=== PATIENT | male | born 1975 | race Caucasian/White ===

== ENCOUNTER 2019-05-08 12:50 | Emergency (ER) | payer MEDICAID ==
[~2019-05-08] VITALS: Ht 190.5 cm; Wt 104.3 kg
[2019-05-08 12:52] VITALS: BP 146/124
--- NOTE | 2019-05-08 12:52 | NUR ---
ED Nurse Note: Patient presented to ED via EMS. Per EMS, patient was out doing errands and felt sudden left lateral abdominal pain that radiates to the back started about an hour prior to admit. Pain level upon assessment 03/06. Per EMS, patient was given 100mcg of Fentantyl. Patient aao x 4 and ambulatory. Patient cooperative but presents with facial grimacing and moaning due to pain. Patient placed on color television console monitor.
[2019-05-08] MEDS ORDERED: Ketorolac 30mg Inj IV ONE (13:15)
[2019-05-08] MEDS ORDERED: Omnipaque-300 100ml vial INJ PRN (13:15)
[2019-05-08] MEDS ORDERED: Morphine Sulfate 4mg/ml Inj (IV USE ONLY) IVP ONE (13:15)
--- NOTE | 2019-05-08 13:28 | NUR ---
ED Nurse Note: patient tried to pee, but unable to. patient medicated with morphine and educated that it is not safe for him to use restroom by himself, but patient insisted that he can use the restroom by himself.
--- NOTE | 2019-05-08 13:35 | NUR ---
ED Nurse Note: Patient placed back on monitor after going to restroom.
[2019-05-08 13:39] LABS: BASOPHILS % (AUTO) 0.7 % (0.0-2.0); EOSINOPHILS % (AUTO) 1.3 % (0.0-3.0); HEMATOCRIT 46.3 % (42.0-52.0); HEMOGLOBIN 16.4 G/DL (14.2-18.0); LYMPHOCYTES % (AUTO) 12.6 % (20.0-45.0); MEAN CORPUSCULAR VOLUME 87 FL (80-99); MONOCYTES % (AUTO) 7.9 % (1.0-10.0); NEUTROPHILS % (AUTO) 77.5 % (45.0-75.0); PLATELET COUNT 236 K/UL (150-450); RED CELL DISTRIBUTION WIDTH 11.8 % (11.6-14.8); WHITE BLOOD COUNT 13.5 K/UL (4.8-10.8)
[2019-05-08 13:56] LABS: ANION GAP 6 mmol/L (5-15); BLOOD UREA NITROGEN 13 mg/dL (7-18); CALCIUM 8.6 MG/DL (8.5-10.1); CARBON DIOXIDE 30 MMOL/L (21-32); CHLORIDE 103 MMOL/L (98-107); CREATININE 0.9 MG/DL (0.55-1.30); INR 0.9 (0.9-1.1); POTASSIUM 4.1 MMOL/L (3.5-5.1); SODIUM 139 MMOL/L (136-145)
--- NOTE | 2019-05-08 14:00 | NUR ---
ED Nurse Note: patient taken to CT scan
[2019-05-08 14:01] LABS: ALANINE AMINOTRANSFERASE 39 U/L (12-78); ALBUMIN 3.9 G/DL (3.4-5.0); ALBUMIN/GLOBULIN RATIO 1.1 (1.0-2.7); ALKALINE PHOSPHATASE 68 U/L (46-116); ASPARTATE AMINO TRANSFERASE 19 U/L (15-37); BILIRUBIN,TOTAL 0.6 MG/DL (0.2-1.0)
--- NOTE | 2019-05-08 14:19 | NUR ---
ED Nurse Note: Patient returned from CT scan in stable condition and placed back on cardiac exercise physiologist.
--- NOTE | 2019-05-08 15:06 | Emergency Room Report ---
History of Present Illness General Chief Complaint: Abdominal Pain Source: Patient (Brando Reeder MD) Present Illness HPI Patient is a 43-year-old male male presents after acute onset of increased left lower abdominal pain. Patient reports of increased pain to the left flank radiating to the groin area. He had multiple episodes of nausea without any vomiting. Pain was severe in nature. He denies any prior similar episodes. Denies any prior history of kidney stones.He denies any hematuria. He had not been having any fever. (Brando Reeder MD) Allergies: Coded Allergies: No Known Allergies (Unverified , 05/08/19) Patient History Past Medical History: see triage record Reviewed Nursing Documentation: PMH: Agreed; PSxH: Agreed (Brando Reeder MD) Nursing Documentation-PMH Past Medical History: No Stated History (Brando Reeder MD) Physical Exam Vital Signs Date Time Temp Pulse Resp B/P (MAP) Pulse Ox O2 Delivery O2 Flow Rate FiO2 05/08/19 12:41 98.1 61 19 137/108 (118) 98 Room Air General Appearance: alert, GCS 15, non-toxic, moderate distress Eyes: bilateral eye normal inspection ENT: hearing grossly normal Neck: full range of motion Respiratory: chest non-tender, lungs clear, normal breath sounds Cardiovascular #1: normal inspection Gastrointestinal: normal inspection, normal bowel sounds, soft Genitourinary: no CVA tenderness Musculoskeletal: normal inspection, back normal Neurologic: normal inspection, alert, oriented x3, quality assurance project manager III-XII nml as tested, motor strength/tone normal Psychiatric: normal inspection Skin: no rash (Brando Reeder MD) Medical Decision Making Diagnostic Impression: Primary Impression: Kidney stone ER Course Patient presented for abdominal pain. Differential diagnoses included ischemic bowel, appendicitis, perforated viscus, abdominal aortic aneurysm, inferior myocardial infarction, viral gastroenteritis among others.Because patient's complexity imaging studies, and laboratory testing ordered. Laboratory testing showed . Patient was noted to have significant initial abdominal pain and was given IV narcotic pain medications as well as IV fluids. Patient's history is suggestive of a possible stone and CT imaging was ordered. Patient was endorsed to pending CT results. . (Brando Reeder MD) ER Course Hospital Course 43 yo M presents to ED c/o L abd pain Patient initially seen and evaluated by Dr. Reeder; please see his note for full history and physical Clinical course Labs - noted leukocytosis, hb/hct stable, electrolytes ok, UA + Bacteria CT scan shows 2mm stone in the bladder lumen with adjacent UVJ dilated. mild hydronephrosis. Discussed findings with patient. Will discharge to home with prescriptions. Does not have a PMD. Will provide PMD and urology referrals I feel this is a highly complex case requiring extensive working including EKG/ Rhythm strip, Xray/CT/US, Blood/urine lab work, repeat exams while in ED, and administration of strong opiates/narcotics for pain control, admission to hospital or close patient follow up. Diagnosis - kidney stone Stable and discharged to home with Rx Motrin, [place], Flomax, zofran. Followup with PMD. Return to ED if symptoms recur or worsen Labs Test 05/08/19 13:15 White Blood Count 13.5 K/UL (4.8-10.8) Red Blood Count 5.30 M/UL (4.70-6.10) Hemoglobin 16.4 G/DL (14.2-18.0) Hematocrit 46.3 % (42.0-52.0) Mean Corpuscular Volume 87 FL (80-99) Mean Corpuscular Hemoglobin 31.0 PG (27.0-31.0) Mean Corpuscular Hemoglobin Concent 35.5 G/DL (32.0-36.0) Red Cell Distribution Width 11.8 % (11.6-14.8) Platelet Count 236 K/UL (150-450) Mean Platelet Volume 7.3 FL (6.5-10.1) Neutrophils (%) (Auto) 77.5 % (45.0-75.0) Lymphocytes (%) (Auto) 12.6 % (20.0-45.0) Monocytes (%) (Auto) 7.9 % (1.0-10.0) Eosinophils (%) (Auto) 1.3 % (0.0-3.0) Basophils (%) (Auto) 0.7 % (0.0-2.0) Prothrombin Time 10.0 SEC (9.30-11.50) Prothromb Time International Ratio 0.9 (0.9-1.1) Activated Partial Thromboplast Time 26 SEC (23-33) Urine Color Pale yellow Urine Appearance Clear Urine pH 7 (4.5-8.0) Urine Specific [place] 1.005 (1.005-1.035) Urine Protein Negative (NEGATIVE) Urine Glucose (UA) Negative (NEGATIVE) Urine Ketones Negative (NEGATIVE) Urine Blood 4+ (NEGATIVE) Urine Nitrite Negative (NEGATIVE) Urine Bilirubin Negative (NEGATIVE) Urine Urobilinogen Normal MG/DL (0.0-1.0) Urine Leukocyte Esterase Negative (NEGATIVE) Urine RBC 5-10 /HPF (0 - 0) Urine WBC 0-2 /HPF (0 - 0) Urine Squamous Epithelial Cells None /LPF (NONE/OCC) Urine Bacteria None /HPF (NONE) Sodium Level 139 MMOL/L (136-145) Potassium Level 4.1 MMOL/L (3.5-5.1) Chloride Level 103 MMOL/L (98-107) Carbon Dioxide Level 30 MMOL/L (21-32) Anion Gap 6 mmol/L (5-15) Blood Urea Nitrogen 13 mg/dL (7-18) Creatinine 0.9 MG/DL (0.55-1.30) Estimat Glomerular Filtration Rate > 60 mL/min (>60) Glucose Level 131 MG/DL (74-106) Calcium Level 8.6 MG/DL (8.5-10.1) Total Bilirubin 0.6 MG/DL (0.2-1.0) Aspartate Amino Transf (AST/SGOT) 19 U/L (15-37) Alanine Aminotransferase (ALT/SGPT) 39 U/L (12-78) Alkaline Phosphatase 68 U/L (46-116) Troponin I 0.000 ng/mL (0.000-0.056) Total Protein 7.4 G/DL (6.4-8.2) Albumin 3.9 G/DL (3.4-5.0) Globulin 3.5 g/dL Albumin/Globulin Ratio 1.1 (1.0-2.7) Lipase 100 U/L (73-393) (Blane Krause MD) CT/MRI/US Diagnostic Results CT/MRI/US Diagnostic Results : Imaging Test Ordered: CT A/P Impression Findings: There is mild left hydroureteronephrosis demonstrated. The ureter is dilated all the way to the UVJ. There is a tiny 2 mm stone within the bladder lumen adjacent to the UVJ probably recently passed. Within portions of the dilated left ureter there are areas of slightly high density along the inferior or dependent margin of the ureter. While this could be artifactual, the possibility of small stones within the left ureter are not excluded in addition to the one described at the level of the left UVJ on the bladder side. Image quality is limited on this study. Therefore the apparent areas of high density could be artifactual. Also contrast material was given intravenously which further confounds the issue. There is no free fluid. The liver and spleen, pancreas and gallbladder and adrenal glands are unremarkable. Bowel gas pattern is nonobstructive. The appendix is not definitely seen. No secondary signs of acute appendicitis appreciated. (Blane Krause MD) Last Vital Signs Date Time Temp Pulse Resp B/P (MAP) Pulse Ox O2 Delivery O2 Flow Rate FiO2 05/08/19 13:51 98.2 05/08/19 12:52 60 18 Room Air 05/08/19 12:52 146/124 100 Status: improved (Brando Reeder MD) Status: improved (Blane Krause MD) Disposition: HOME, SELF-CARE Condition: Stable Scripts Tamsulosin HCl (Flomax) 0.4 Mg Cap.er.24h 0.4 MG ORAL DAILY, #10 CAP Prov: Blane Krause MD 05/08/19 Ondansetron Odt* (ZOFRAN ODT*) 4 Mg Tab.rapdis 4 MG BC EVERY 6 HOURS PRN for Nausea & Vomiting, #20 TAB 0 Refills Prov: Blane Krause MD 05/08/19 Hydrocodone Bit/Acetaminophen 5-325* (NORCO 5-325*) 1 Each Tablet 1 TAB ORAL Q6H PRN for For Pain for 3 Days, #12 TAB 0 Refills Prov: Blane Krause MD 05/08/19 Ibuprofen* (MOTRIN*) 600 Mg Tablet 600 MG ORAL Q8H PRN for For Pain, #30 TAB 0 Refills Prov: Blane Krause MD 05/08/19 Brando Reeder MD May 08, 2019 15:06 Blane Krause MD May 08, 2019 16:08
[2019-05-08 15:14] LABS: APPEARANCE,URINE CLEAR; BILIRUBIN, URINE NEGATIVE (NEGATIVE); COLOR,URINE PALE YELLOW; GLUCOSE, URINE (UA) NEGATIVE (NEGATIVE); KETONES,URINE NEGATIVE (NEGATIVE); LEUKOCYTE ESTERASE ,URINE NEGATIVE (NEGATIVE); NITRITE,URINE NEGATIVE (NEGATIVE); PH,URINE 7 (4.5-8.0); PROTEIN,URINE NEGATIVE (NEGATIVE); UROBILINOGEN,URINE NORMAL MG/DL (0.0-1.0)
--- NOTE | 2019-05-08 15:27 | Diagnostic Imaging Report ---
Indication: Abdominal pain Technique: Continuous helical transaxial imaging of the abdomen and pelvis was obtained from the lung bases to the pubic symphysis during intravenous contrast administration. Coronal 2-D reformats were also obtained. Study obtained in a Siemens sensation [address] Automatic Exposure Control was utilized. Total Dose length Product (DLP): 1118.[address] Dose Index Volume (CTDIvol): 16.7 mGy Comparison: None Findings: There is mild left hydroureteronephrosis demonstrated. The ureter is dilated all the way to the UVJ. There is a tiny 2 mm stone within the bladder lumen adjacent to the UVJ probably recently passed. Within portions of the dilated left ureter there are areas of slightly high density along the inferior or dependent margin of the ureter. While this could be artifactual, the possibility of small stones within the left ureter are not excluded in addition to the one described at the level of the left UVJ on the bladder side. Image quality is limited on this study. Therefore the apparent areas of high density could be artifactual. Also contrast material was given intravenously which further confounds the issue. There is no free fluid. The liver and spleen, pancreas and gallbladder and adrenal glands are unremarkable. Bowel gas pattern is nonobstructive. The appendix is not definitely seen. No secondary signs of acute appendicitis appreciated. IMPRESSION: Mild left hydroureteronephrosis secondary to a 2 mm stone within the bladder lumen adjacent to the UVJ most likely just recently passed. Question of tiny stones (1-2mm) within the dilated left ureter versus artifact. Suboptimal image quality limiting evaluation. The CT scanner at [facility] is accredited by the [employer] and the scans are performed using dose optimization techniques as appropriate to a performed exam including Automatic Exposure control.
[2019-05-08 15:45] VITALS: BP 130/90
[2019-05-08] MEDS ORDERED: IBUPROFEN600 MG ORAL (15:56)
[2019-05-08] MEDS ORDERED: ONDANSETRON ODT4 MG BC (15:56)
[2019-05-08] MEDS ORDERED: FLOMAX0.4 MG ORAL (15:56)
[2019-05-08] MEDS ORDERED: NORCO 5-325 TA1 EACH ORAL (15:56)
[2019-05-08 16:17] VITALS: BP 130/90
--- NOTE | 2019-05-08 16:17 | NUR ---
ER DISCHARGE NOTE: Patient is cleared to be discharged per ERMD DR SCHMITT, pt is aox4, on room air, with stable vital signs. pt was given dc and prescription instructions, pt was able to verbalize understanding, pt id band and iv site removed without complications. pt is able to ambulate with steady gait. pt took all belongings.
== END 2019-05-08 16:17 | disposition home or self-care (01) ==
LOC: EDBD 12:50 → EMR 15:44
DX: N20.0 Calculus of kidney (principal); D72.829 Elevated white blood cell count, unspecified; N21.0 Calculus in bladder
CPT/HCPCS: 36415; 74177; 80053; 81003; 83690; 84484; 85025; 85610; 85730; 86850; 86900; 86901; 96374; 96375; J1885; J2270; J2405; Q9967; Z7502; 99284